=== PATIENT | female | born 1950 | race Hispanic/Latino ===

== ENCOUNTER → 2023-10-29 | Outpatient (CLI) | payer OTHER | END | disposition home or self-care (01) | LOC: RAH 14:33 | PROVIDERS: ATTEND Family Medicine | DX: Z13.820 Encounter for screening for osteoporosis (principal); M81.0 Age-related osteoporosis without current pathological fracture; M85.88 Other specified disorders of bone density and structure, other site; Z78.0 Asymptomatic menopausal state | CPT/HCPCS: 77080 ==

== ENCOUNTER → 2024-06-29 | Outpatient (CLI) | payer OTHER ==
--- NOTE | 2024-06-29 11:56 | HMCIMG ---
US CAROTID DUPLEX HISTORY: Hypertension COMPARISON: None TECHNIQUE: Duplex carotid arterial Doppler ultrasound study was performed. FINDINGS: The common, internal and external carotid arteries are visualized. The peak systolic velocities of right common carotid artery is 74 centimeters per second, right internal carotid artery is 112 centimeters per second, right external carotid artery is 151 centimeters per second, and right vertebral artery is 85 centimeters per second. Right internal carotid artery to right common carotid artery ratio is 1.5. Right vertebral artery is seen with antegrade flow. The peak systolic velocities of left common carotid artery is 97 centimeters per second, left internal carotid artery is 113 centimeters per second, left external carotid artery is 98 centimeters per second, and left vertebral artery is 56 centimeters per second. Left internal carotid artery to left common carotid artery ratio is 1.2. Left vertebral artery is seen with antegrade flow. There are bilateral echogenic plaques. IMPRESSION: 1. No hemodynamically significant lesion is seen of either extracranial carotid artery system.
== END | disposition home or self-care (01) ==
LOC: RAH 10:55
PROVIDERS: ATTEND Family Medicine
DX: I65.23 Occlusion and stenosis of bilateral carotid arteries (principal); I10 Essential (primary) hypertension
CPT/HCPCS: 93880